=== PATIENT | male | born 1970 | race Caucasian/White ===

== ENCOUNTER 2016-08-26 23:59 | Emergency (ER) | payer SELFPAY ==
--- NOTE | ~2016-08-26 | EKG ---
PATIENT: JIMBO MILLARD UNIT #: [id number] Ventricular Rate: 106 BPM Atrial Rate: 106 BPM P-R Interval: 146 ms QRS Duration: 90 ms Q-T Interval: 386 ms QTC Calculation(Bezet): 512 ms P [place]: 70 degrees Calculated R [place]: 83 degrees Calculated T [place]: 85 degrees Diagnosis Line: Sinus tachycardia Diagnosis Line: Biatrial enlargement Diagnosis Line: Anterior infarct , age undetermined Diagnosis Line: Abnormal ECG Diagnosis Line: No previous ECGs available Diagnosis Line: Confirmed by VIRGINIA WEBB MD ([id number]) on 08/27/2016 Diagnosis Line: 6:29:53 PM INTERPRETING MD: TRACEY BROWN
--- NOTE | ~2016-08-26 | EKG ---
PATIENT: JIMBO MILLARD UNIT #: [id number] Ventricular Rate: 95 BPM Atrial Rate: 95 BPM P-R Interval: 146 ms QRS Duration: 84 ms Q-T Interval: 406 ms QTC Calculation(Bezet): 510 ms P [place]: 57 degrees Calculated R [place]: 71 degrees Calculated T [place]: 82 degrees Diagnosis Line: Normal sinus rhythm Diagnosis Line: Left atrial enlargement Diagnosis Line: Serial changes of evolving Anterior infarct Diagnosis Line: T wave abnormality, consider anterolateral Diagnosis Line: ischemia Diagnosis Line: Prolonged QT Diagnosis Line: Abnormal ECG Diagnosis Line: No significant change was found Diagnosis Line: Confirmed by VIRGINIA WEBB MD ([id number]) on 08/27/2016 Diagnosis Line: 6:34:53 PM INTERPRETING MD: TRACEY BROWN
--- NOTE | ~2016-08-26 | CR72 ---
[facility] A Service of [facility] & [facility] RADIOLOGY TEXT RESULTS PATIENT: JIMBO MILLARD LOCATION: [facility] : 74 UNIT #: [id number] AGE: [address]: Kike Wilkins MD SEX: M ORDER DR: [id number] [facility] [address]. [place], [place] [address] [id number] P MR#: [id number] Acc #: [id number] NAME: JIMBO MILLARD : 1970 SEX: M STUDY DATE/TIME: 08/26/2016 22:41 UNIT: [facility] ROOM: STUDY DESCRIPTION: CR Chest Single View Portable Ordering Physician: Sebastian Farmer M.D. MEDICAL IMAGING REPORT This report is preliminary unless electronic signature is present EXAM Chest x-ray 08/26/2016 HISTORY 46-year-old male in the ED complaining of 2-day history of chest pain and shortness of air. TECHNIQUE AP portable chest x-ray. FINDINGS The examination is negative. Heart size and pulmonary vascularity are normal. The lungs are clear. No visible pulmonary infiltrate or pleural effusion. IMPRESSION Negative chest. Dictated by... Mathew Fleming M.D. THIS IS AN ELECTRONICALLY VERIFIED REPORT Mathew Fleming M.D. at 08/27/2016 5:57 AM GRETCHEN/stephanie TD: 08/26/2016 23:30 JOB #: [id number] MEDICAL IMAGING REPORT Page 1 of 1 COPY
--- NOTE | ~2016-08-26 | EKG ---
PATIENT: JIMBO MILLARD UNIT #: [id number] Ventricular Rate: 102 BPM Atrial Rate: 102 BPM P-R Interval: 142 ms QRS Duration: 88 ms Q-T Interval: 380 ms QTC Calculation(Bezet): 495 ms P [place]: 68 degrees Calculated R [place]: 81 degrees Calculated T [place]: 81 degrees Diagnosis Line: Sinus tachycardia Diagnosis Line: Left atrial enlargement Diagnosis Line: Anteroseptal infarct (cited on or before Diagnosis Line: 26-AUG-2016) Diagnosis Line: Abnormal ECG Diagnosis Line: When compared with ECG of 26-AUG-2016 21:33, Diagnosis Line: (unconfirmed) Diagnosis Line: Serial changes of Anteroseptal infarct Present Diagnosis Line: Confirmed by VIRGINIA WEBB MD ([id number]) on 08/27/2016 Diagnosis Line: 6:33:20 PM INTERPRETING MD: TRACEY BROWN
--- NOTE | ~2016-08-26 | EKG ---
PATIENT: JIMBO MILLARD UNIT #: [id number] Ventricular Rate: 85 BPM Atrial Rate: 85 BPM P-R Interval: 146 ms QRS Duration: 94 ms Q-T Interval: 414 ms QTC Calculation(Bezet): 492 ms P [place]: 62 degrees Calculated R [place]: 79 degrees Calculated T [place]: 79 degrees Diagnosis Line: Normal sinus rhythm Diagnosis Line: Possible Left atrial enlargement Diagnosis Line: Anteroseptal infarct , possibly acute Diagnosis Line: ACUTE VA / STEMI Diagnosis Line: Abnormal ECG Diagnosis Line: No previous ECGs available Diagnosis Line: Confirmed by VIRGINIA WEBB MD ([id number]) on 08/27/2016 Diagnosis Line: 6:35:18 PM INTERPRETING MD: TRACEY BROWN
[2016-08-26 22:59] LABS: BASOPHIL# 0.1 X10e3 (0-0.3); BASOPHIL% 0.6 % (0-2.5); EOSINOPHIL# 0.2 X10e3 (0-0.7); EOSINOPHIL% 1.4 % (0.0-7.0); HEMATOCRIT 48.2 % (38.0-50.0); HEMOGLOBIN 16.7 gm/dL (13.0-16.0); LYMPHOCYTE# 2.3 X10e3 (1.0-3.5); LYMPHOCYTE% 15.2 % (17.0-45.0); MEAN CELL VOLUME 89.9 FL (83-96); MEAN CORPUSCULAR HEMOGLOBIN 31.2 PG (28-34); MEAN CORPUSCULAR HGB CONC 34.7 g/dL (30-36); MEAN PLATELET VOLUME 10.3 FL (6.5-11.5); MONOCYTE# 1.5 X10e3 (0-1.0); MONOCYTE% 9.8 % (3.0-12.0); NEUTROPHIL# 11.3 X10e3 (1.5-7.1); PLATELET COUNT 170 X10e3 (140-420); RED BLOOD COUNT 5.37 X10e (3.90-5.60); RED CELL DISTRIBUTION WIDTH 12.5 % (11.0-15.5); WHITE BLOOD COUNT 15.4 X10e3 (4.0-10.5)
[2016-08-26 23:00] LABS: DIFF IND YES
[2016-08-26 23:08] LABS: PARTIAL THROMBOPLASTIN TIME 26.3 SECONDS (23.5-31.3); PROTHROMBIN TIME (PATIENT) 10.7 SECONDS (9.6-11.5)
[2016-08-26 23:12] LABS: ALBUMIN SERUM 3.9 g/dL (3.5-5.0); BILIRUBIN, DIRECT 0.1 mg/dL (0.0-0.2); BILIRUBIN,INDIRECT 0.3 mg/dL (0.0-0.9); BILIRUBIN,TOTAL 0.4 mg/dL (0.2-2.0); BUN/CREATININE RATIO 8.75; CREATININE SERUM 0.8 mg/dL (0.6-1.4); GLOM FILT RATE Estimated 108.7 mL/min (>60); POTASSIUM 4.1 mmol/L (3.5-5.1); PROTEIN TOTAL SERUM 7.5 g/dL (6.0-8.3)
[2016-08-26 23:15] LABS: PLATELET ESTIMATE NORMAL (NORMAL)
[2016-08-26 23:16] LABS: ANISOCYTOSIS SL
[2016-08-27 01:25] LABS: POC - CKMB 6.8 ng/mL (0.0-7.9); POC - TROPONIN 0.46 ng/mL (<=0.05)
[2016-08-27 01:38] LABS: POC - CKMB 33.2 ng/mL (0.0-7.9); POC - TROPONIN 1.75 ng/mL (<=0.05)
== END 2016-08-27 04:16 | disposition short-term general hospital (02) ==
LOC: CED 23:59
PROVIDERS: Emergency Medicine
DX: I21.3 ST elevation (STEMI) myocardial infarction of unspecified site (principal); E11.9 Type 2 diabetes mellitus without complications; E78.5 Hyperlipidemia, unspecified; I10 Essential (primary) hypertension; F17.210 Nicotine dependence, cigarettes, uncomplicated
CPT/HCPCS: 36415; 71010; 80048; 80076; 82553; 84484; 85025; 85610; 85730; 93005; 96361; 96365; 96375; 99291; J1644; J2997

== ENCOUNTER 2016-11-17 14:16 | Emergency (ER) | payer SELFPAY | END 2016-11-17 15:00 | disposition home or self-care (01) | LOC: CED 14:16 | DX: I10 Essential (primary) hypertension (principal); E11.9 Type 2 diabetes mellitus without complications; F17.210 Nicotine dependence, cigarettes, uncomplicated | CPT/HCPCS: 99283 ==